=== PATIENT | male | born 1945 | race Caucasian/White ===

== ENCOUNTER 2018-09-23 08:57 | Emergency (ER) | payer MEDICARE, MEDICAID ==
[~2018-09-23] VITALS: Ht 172.7 cm; Wt 73.0 kg
[2018-09-23] MEDS ORDERED: SULF500T8 PO (09:34)
[2018-09-23] MEDS ORDERED: INSNPH SUBCUT (09:34)
[2018-09-23] MEDS ORDERED: ATOR20TA65 MT (09:34)
[2018-09-23] MEDS ORDERED: CARV12.545 MT (09:34)
[2018-09-23] MEDS ORDERED: METF-414 PO (09:34)
[2018-09-23] MEDS ORDERED: ACET-2708 MT (09:34)
[2018-09-23] MEDS ORDERED: WARF-53 PO (09:34)
[2018-09-23] MEDS ORDERED: SPIR25TA6 PO (09:34)
[2018-09-23] MEDS ORDERED: FURO40TA5 MT (09:34)
[2018-09-23] MEDS ORDERED: LYR25 PO (09:34)
[2018-09-23] MEDS ORDERED: DOCU250C19 PO (09:34)
[2018-09-23] MEDS ORDERED: CELE100C97 PO (09:34)
[2018-09-23] MEDS ORDERED: TAMS0.4C31 MT (09:34)
[2018-09-23] MEDS ORDERED: FINA5TAB11 MT (09:34)
[2018-09-23] MEDS ORDERED: POTASSIUM (09:34)
[2018-09-23] MEDS ORDERED: TRAZ-212 PO (09:34)
[2018-09-23] MEDS ORDERED: TRAM50TA3 PO (09:34)
[2018-09-23] MEDS ORDERED: DILT-26 PO (09:34)
[2018-09-23] MEDS ORDERED: OMEP40CA34 MT (09:34)
[2018-09-23] MEDS ORDERED: MECL-109 PO (09:34)
[2018-09-23] MEDS ORDERED: TRAMADOL 50MG TABLET PO ONE (11:30)
[2018-09-23 14:59] VITALS: BP 121/75
== END 2018-09-23 15:02 | disposition home or self-care (01) ==
LOC: ER 09:17
DX: M54.5 Low back pain (principal); E11.9 Type 2 diabetes mellitus without complications; I10 Essential (primary) hypertension; F17.200 Nicotine dependence, unspecified, uncomplicated; Z95.0 Presence of cardiac pacemaker; Z79.899 Other long term (current) drug therapy; W19.XXXA Unspecified fall, initial encounter; Y93.89 Activity, other specified; Y92.89 Other specified places as the place of occurrence of the external cause; Y99.8 Other external cause status
CPT/HCPCS: 72070; 72100; 99284